=== PATIENT | male | born 1970 | race Caucasian/White ===

== ENCOUNTER 2016-07-10 18:30 | Emergency (ER) | payer OTHER ==
[2016-07-10 18:42] VITALS: TEMP 98; BMI 24.0
[2016-07-10] MEDS ORDERED: HYDROmorphone HCL CARPU-JECT 1 MG/1 ML DISP.SYRIN ONE (18:56)
--- NOTE | 2016-07-10 19:18 | PDOC ---
History of Present Illness - General Chief Complaint: Burn Stated Complaint: LT ARM INJURY Time Seen by Provider: 07/10/16 18:59 History Source: Patient Exam Limitations: No Limitations - History of Present Illness Initial Comments: 07/10/16 20:29 45-year-old male complains of severe pain and redness to the left forearm after spilling hot water on it at work. Pain is constant, dull, nonradiating, with development of blisters on the volar aspect of the distal left forearm. Patient is right-handed. Last tetanus was 6 years previously. REVIEW OF SYSTEMS CONSTITUTIONAL: No fever, no chills, no fatigue EYES: No visual changes ENT: No ear pain, no sore throat CARDIOVASCULAR: No chest pain, no palpitations RESPIRATORY: No cough, no SOB GI: No abdominal pain, no nausea, no vomiting, no constipation, no diarrhea GENITOURINARY: No dysuria, no frequency, no hematuria MUSKULOSKELETAL: No backpain, no joint pain, no myalgias SKIN: left arm burn NEURO: No headache EXAMINATION CONSTITUTIONAL: Awake and alert, well-nourished; in mild to moderate distress HEAD: Normocephalic; atraumatic EYES: PERRL; EOM intact ENMT: External appears normal; normal oropharynx NECK: Supple; non-tender; no cervical lymphadenopathy CARD: Normal S1, S2; no murmurs, rubs, or gallops RESP: Normal chest excursion with respiration; breath sounds clear and equal bilaterally; no wheezes, rhonchi, or rales ABD: Soft, non-distended; non-tender; no palpable organomegaly, no palpable hernias EXT: Normal ROM in all four extremities; non-tender to palpation; distal pulses intact SKIN: Left upper extremity: Well demarcated circumferential erythema of the left forearm extending distally to just beyond the wrist joint consistent with a first-degree burn, with development of several small blisters to the volar aspect of the distal left forearm consistent with a second-degree burn; neurovascularly intact distally NEURO: No focal neurological deficiencies. Past History - Past Medical History Allergies/Adverse Reactions: Allergies Allergy/AdvReac Type Severity Reaction Status Date / Time No Known Allergies Allergy Verified 07/10/16 18:35 Home Medications: Ambulatory Orders Oxycodone HCl/Acetaminophen [Percocet 5-325 mg Tablet] 1 tab PO Q6H #14 tablet MDD 4 01/12/17 Other medical history: denies - Immunization History Immunization Up to Date: Yes - Psycho/Social/Smoking Cessation Hx Anxiety: No Suicidal Ideation: No Smoking History: Never smoked Have you smoked in the past 12 months: No Information on smoking cessation initiated: No Hx Alcohol Use: No Drug/Substance Use Hx: No *Physical Exam - Vital Signs Last Vital Signs Temp Pulse Resp BP Pulse Ox 98 F 67 20 131/28 97 07/10/16 18:36 07/10/16 18:36 07/10/16 18:36 07/10/16 18:36 07/10/16 18:36 Medical Decision Making - Medical Decision Making 07/10/16 20:32 Patient is a 45-year-old male who presents with signs and symptoms of first and second-degree burn to the left forearm constituting approximately 5% of total body surface area. Burn was irrigated and Silvadene applied. Diluted IV was administered. At this time, patient is safe for discharge with Silvadene treatment oral pain medication and surgical clinic follow-up for possible debridement. 07/10/16 20:36 A tub of Silvadene cream has been provided to the patient. *DC/Admit/Observation/Transfer Diagnosis at time of Disposition: Burn, second degree, Burn, first degree - Discharge Dispostion Disposition: HOME Condition at time of disposition: Stable - Prescriptions Prescriptions: Oxycodone HCl/Acetaminophen [Percocet 5-325 mg Tablet] 1 tab PO Q6H #14 tablet MDD 4 - Referrals Referrals: [facility] [Provider Group] - Patient Instructions Printed Discharge Instructions: How to Take Care of a Burn, DI for [place] Print Language: BULGARIAN - Post Discharge Activity Work/School Note: Back to Work
[2016-07-10] MEDS ORDERED: HYDROmorphone HCL CARPU-JECT 1 MG/1 ML DISP.SYRIN IVPB ONE (19:27)
[2016-07-10 21:19] VITALS: BP 128/66; PULSE 72
== END 2016-07-10 21:15 | disposition home or self-care (01) ==
LOC: JER 18:30
PROC: 2W2CX4Z Dressing of Right Lower Arm using Bandage (ICD-10-PCS; principal; 2016-07-10)
PROC: 3E033NZ Introduction of Analgesics, Hypnotics, Sedatives into Peripheral Vein, Percutaneous Approach (ICD-10-PCS; 2016-07-10)
DX: T22.212A Burn of second degree of left forearm, initial encounter (principal); T31.0 Burns involving less than 10% of body surface; T79.9XXA Unspecified early complication of trauma, initial encounter; X11.8XXA Contact with other hot tap-water, initial encounter; Y93.89 Activity, other specified; Y92.89 Other specified places as the place of occurrence of the external cause; Y99.0 Civilian activity done for income or pay
CPT/HCPCS: 99282-25

== ENCOUNTER 2023-07-11 13:57 | Observation (INO) | payer OTHER ==
[2023-07-11] MEDS ORDERED: LACTATED RINGERS SOLUTION 1000 ML INFUS.BAG IV ONE ×2 (15:44→19:11)
[2023-07-11] MEDS ORDERED: MAG HYDROX/AL HYDROX/SIMETH 30 ML UNIT-DOSE CUP PO ONE (15:44)
[2023-07-11] MEDS ORDERED: ONDANSETRON 4 MG/2 ML VIAL IVPUSH ONE (15:44)
[2023-07-11] MEDS ORDERED: FAMOTIDINE 20 MG/50 ML IVPB 20 MG/50 ML MG IVPB ONE ×2 (15:44→16:13)
[2023-07-11] MEDS ORDERED: ACETAMINOPHEN 1000 MG/100 ML BAG IVPB ONE (16:01)
[2023-07-11] MEDS ORDERED: MAG HYDROX/AL HYDROX/SIMETH 30 ML UNIT-DOSE CUP ONE (16:13)
[2023-07-11] MEDS ORDERED: ONDANSETRON 4 MG/2 ML VIAL ONE (16:13)
[2023-07-11] MEDS ORDERED: ACETAMINOPHEN INJECTION 100 ML IVPB ONE (16:13)
[2023-07-11 16:38] LABS: HEMOGLOBIN 15.2 GM/dL (11.7-16.9); MCH 30.5 pg (25.7-33.7); MCHC 33.8 g/dl (32.0-35.9); MEAN CELL VOLUME 90.1 fl (80-96); MEAN PLT VOLUME 8.4 fl (7.5-11.1); PLATELET COUNT 265 10^3/uL (134-434); RBC 4.99 M/mm3 (4.00-5.60); RDW 13.8 % (11.9-15.9)
[2023-07-11 16:39] LABS: PH,URINE 5.5 (5.0-8.0); URINE APPEARANCE CLOUDY; URINE BILIRUBIN NEGATIVE (NEGATIVE); URINE COLOR YELLOW; URINE GLUCOSE (UA) NEGATIVE (NEGATIVE); URINE KETONE NEGATIVE (NEGATIVE); URINE LEUK ESTERASE NEGATIVE (NEGATIVE); URINE NITRITE NEGATIVE (NEGATIVE); URINE PROTEIN TRACE (NEGATIVE); URINE UROBILINOGEN 0.2 mg/dL (0.2-1.0)
[2023-07-11 16:47] LABS: INR 1.01 (0.83-1.09); PROTHROMBIN TIME (PATIENT) 11.7 SEC (9.7-13.0)
[2023-07-11 16:49] LABS: ACTIVATED PTT 30.8 SECONDS (25.2-36.5)
[2023-07-11 17:03] LABS: POTASSIUM 3.8 mmol/L (3.5-5.1)
[2023-07-11 17:05] LABS: CALCIUM 8.4 mg/dL (8.5-10.1)
[2023-07-11 17:06] LABS: ALBUMIN 3.8 g/dl (3.4-5.0); BLOOD UREA NITROGEN 15.4 mg/dL (7-18); MAGNESIUM 2.2 mg/dL (1.8-2.4)
[2023-07-11 17:09] LABS: CREATININE 0.7 mg/dL (0.55-1.3)
[2023-07-11 17:10] LABS: TOT PROT 7.4 g/dl (6.4-8.2)
[2023-07-11 17:11] LABS: BILIRUBIN,TOTAL 0.4 mg/dL (0.2-1)
[2023-07-11 17:34] LABS: ANISOCYTOSIS 0; MACROCYTOSIS 0; PLATELET ESTIMATE NORMAL
[2023-07-11] MEDS ORDERED: morphine CARPU-JECT 4 MG/1 ML DISP.SYRIN IVPUSH ONE (19:11)
[2023-07-11] MEDS ORDERED: PIPERACILLIN/TAZOB 3.375 GM 3.375 GM in DEXTROSE 5%-WATER - 50 ML IVPB ONE (19:32)
[2023-07-11] MEDS ORDERED: PIPERACILLIN/TAZOB 3.375 GM 3.375 GM/50 ML BAG IVPB ONE (19:58)
[2023-07-11] MEDS ORDERED: morphine SULFATE 4 MG/ML VIAL ONE (19:58)
[2023-07-11] MEDS ORDERED: ONDANSETRON 4 MG/2 ML VIAL IVPUSH PRN (20:14)
[2023-07-11] MEDS: DEXTROSE 5%-0.45% SALINE 1,000 ML IV SCH (22:52)
[2023-07-11] MEDS: ACETAMINOPHEN 1000 MG/100 ML BAG IVPB PRN (23:06)
[2023-07-12 00:24] VITALS: BMI 24.5
[2023-07-12] MEDS: PIPERACILLIN/TAZOB 3.375 GM 3.375 GM in DEXTROSE 5%-WATER - 50 ML IVPB SCH ×3 (02:34→13:15)
[2023-07-12 08:42] LABS: BASO % 0.1 % (0-2.0); EOS % 0.1 % (0-4.5); HEMATOCRIT 40.4 % (35.4-49); HEMOGLOBIN 13.9 GM/dL (11.7-16.9); LYMPH % 5.9 % (8-40); MCH 30.8 pg (25.7-33.7); MCHC 34.3 g/dl (32.0-35.9); MEAN CELL VOLUME 89.6 fl (80-96); MONO % 3.8 % (3.8-10.2); NEUT % 90.1 % (42.8-82.8); PLATELET COUNT 217 10^3/uL (134-434); RDW 13.7 % (11.9-15.9)
[2023-07-12 08:43] LABS: POTASSIUM 3.5 mmol/L (3.5-5.1)
[2023-07-12 08:49] LABS: BLOOD UREA NITROGEN 8.8 mg/dL (7-18)
[2023-07-12 08:52] LABS: CREATININE 0.6 mg/dL (0.55-1.3)
[2023-07-12] MEDS: DEXTROSE 5%-0.45% SALINE 1,000 ML IV SCH ×2 (10:10→13:45)
[2023-07-12] MEDS ORDERED: ONDANSETRON 4 MG/2 ML VIAL IVPUSH PRN ×2 (10:19→13:00)
[2023-07-12] MEDS ORDERED: LACTATED RINGERS SOLUTION 1,000 ML IV SCH (10:30)
[2023-07-12] MEDS ORDERED: PROPOFOL 20 ML ONE (10:34)
[2023-07-12] MEDS ORDERED: ONDANSETRON 4 MG/2 ML VIAL ONE (10:34)
[2023-07-12] MEDS ORDERED: ROCURONIUM BROMIDE 50 MG/5 ML SYRINGE ONE (10:34)
[2023-07-12] MEDS ORDERED: LIDOCAINE HCL/PF 2% SDV 5ML VIAL ONE (10:34)
[2023-07-12] MEDS ORDERED: KETOROLAC TROMETHAMINE 30 MG/1 ML VIAL ONE (10:34)
[2023-07-12] MEDS ORDERED: DEXAMETHASONE SOD PHOSPHATE 4 MG/1 ML VIAL ONE (10:34)
[2023-07-12] MEDS ORDERED: MIDAZOLAM HCL 2 MG/2 ML SINGLE DOSE VIAL ONE (10:35)
[2023-07-12] MEDS ORDERED: ACETAMINOPHEN 1000 MG/100 ML BAG IVPB ONE (10:45)
[2023-07-12] MEDS ORDERED: BUPIVACAINE HCL/PF 0.25% (2.5MG/ML) 10 ML VIAL ONE (11:06)
[2023-07-12] MEDS ORDERED: SUGAMMADEX SODIUM 200 MG/2 ML VIAL ONE (11:28)
[2023-07-12] MEDS ORDERED: BUPIVACAINE HCL/PF 2.5 MG/ML - 30 ML VIAL IJ ONE (12:14)
[2023-07-12] MEDS ORDERED: ACETAMINOPHEN 650 MG/20.3 ML ORAL SOLUTION (CUPS) PO STA (13:00)
[2023-07-12] MEDS ORDERED: morphine SULFATE 4 MG/ML VIAL IVPUSH PRN ×2 (13:00)
[2023-07-12] MEDS ORDERED: IBUPROFEN 400 MG TABLET (FP) PO STA (13:00)
[2023-07-12] MEDS: ACETAMINOPHEN 1000 MG/100 ML BAG IVPB PRN ×2 (13:00→13:44)
[2023-07-12] MEDS ORDERED: ACETAMINOPHEN INJECTION 100 ML IVPB ONE (13:06)
[2023-07-12] MEDS ORDERED: PIPERACILLIN/TAZOB 3.375 GM 3.375 GM in DEXTROSE 5%-WATER - 50 ML IVPB SCH (18:00)
[2023-07-13] MEDS: DEXTROSE 5%-0.45% SALINE 1,000 ML IV SCH ×2 (01:33→14:29)
[2023-07-13 10:49] LABS: BASO % 0.1 % (0-2.0); HEMATOCRIT 38.6 % (35.4-49); HEMOGLOBIN 13.4 GM/dL (11.7-16.9); LYMPH % 10.2 % (8-40); MCH 31.1 pg (25.7-33.7); MCHC 34.8 g/dl (32.0-35.9); MEAN CELL VOLUME 89.5 fl (80-96); MEAN PLT VOLUME 9.3 fl (7.5-11.1); MONO % 5.3 % (3.8-10.2); NEUT % 84.4 % (42.8-82.8); PLATELET COUNT 219 10^3/uL (134-434); RBC 4.31 M/mm3 (4.00-5.60); RDW 13.6 % (11.9-15.9); WHITE BLOOD COUNT 14.2 K/mm3 (4.0-10.0)
[2023-07-13 11:05] LABS: POTASSIUM 3.4 mmol/L (3.5-5.1)
[2023-07-13 11:10] LABS: BLOOD UREA NITROGEN 12.8 mg/dL (7-18); CALCIUM 8.5 mg/dL (8.5-10.1)
[2023-07-13 11:13] LABS: TOT PROT 6.3 g/dl (6.4-8.2)
[2023-07-13 11:15] LABS: CREATININE 0.5 mg/dL (0.55-1.3)
[2023-07-13] MEDS ORDERED: POTASSIUM CHLORIDE ORAL LIQUID 20 MEQ/15 ML PO ONE (12:45)
[2023-07-13 14:50] VITALS: BP 107/60; PULSE 80; RESP 18; TEMP 99.1
== END 2023-07-13 15:49 | disposition home or self-care (01) ==
LOC: JER 13:57 → INTOOBSV 18:46 → JERBED 18:46 → UNDOADMOB 18:46 → JERBED 20:13 → J8W 22:37
PROVIDERS: ADMIT Internal Medicine; ATTEND Internal Medicine
PROC: 3E033NZ Introduction of Analgesics, Hypnotics, Sedatives into Peripheral Vein, Percutaneous Approach (ICD-10-PCS; 2023-07-11)
PROC: 3E0337Z Introduction of Electrolytic and Water Balance Substance into Peripheral Vein, Percutaneous Approach (ICD-10-PCS; 2023-07-11)
PROC: 3E03329 Introduction of Other Anti-infective into Peripheral Vein, Percutaneous Approach (ICD-10-PCS; 2023-07-11)
PROC: 3E033NZ Introduction of Analgesics, Hypnotics, Sedatives into Peripheral Vein, Percutaneous Approach (ICD-10-PCS; 2023-07-11)
PROC: 0DTJ4ZZ Resection of Appendix, Percutaneous Endoscopic Approach (ICD-10-PCS; principal; 2023-07-12 10:47)
DX: K35.80 Unspecified acute appendicitis (principal); E78.5 Hyperlipidemia, unspecified; R10.32 Left lower quadrant pain
CPT/HCPCS: 0241U-QW; 36415; 74177-TC; 80048; 80053; 81003; 83690; 83735; 84484; 85025; 85610; 85730; 87086; 88304-TC; 93005; 93010; 94760; 96361; 96365; 96366; 96367; 96368; 96375; 96376; 99285-25; G0378; Q9967